=== PATIENT | female | born 1970 | race African-American/Black ===

== ENCOUNTER 2016-10-14 08:56 | Emergency (ER) | payer OTHER ==
[~2016-10-14] VITALS: Ht 154.9 cm; Wt 73.0 kg
[~2016-10-14 08:56] MED LIST: ALPR0.5T99 PO; DONNTAB12 PO; IBUP-232 PO; MAXZ PO; METH750T2 PO; PRIL20CA PO
[2016-10-14 08:57] VITALS: BP 150/96; PULSE 82; RESP 20; TEMP 98.5; O2SAT 97
[2016-10-14] MEDS ORDERED: METH4PAK PO (09:15)
[2016-10-14] MEDS ORDERED: CART120C PO (09:15)
[2016-10-14] MEDS ORDERED: HYOS0.128 PO (09:15)
[2016-10-14] MEDS ORDERED: METH25IN13 (09:15)
[2016-10-14] MEDS ORDERED: TRAM50TA PO (09:15)
--- NOTE | 2016-10-14 09:15 | PD ---
HPI Chief Complaint: Back/ Neck Pain or Injury Time Seen by Provider: 09:10 Travel History International Travel<30 days: No Contact w/Intl Traveler<30days: No Traveled to known affect area: No History of Present Illness HPI 46 y/o PFSH Past Medical History Cancer: No Diabetes: No Glaucoma: No Hepatitis: No Hiatal Hernia: No Hypertension: Yes Thyroid Disease: No Past Surgical History Gynecologic Surgery: Yes (tubal hysterectomy laparscopic) Hysterectomy: Yes Pacemaker: No Other Surgery: Yes Social History Alcohol Use: Yes (1-2 beers per day) Tobacco Use: Yes (3 cigarettes per day) Allergies-Medications (Allergen,Severity, Reaction): Coded Allergies: No Known Allergies (Unverified , 10/14/16) Reported Meds & Prescriptions Reported Meds & Active Scripts Active Reported Hyoscyamine (Hyoscyamine Sulfate) 0.125 Mg Tab 0.125 Mg PO Q4H Cartia Xt (Diltiazem ER 24 HR) 120 Mg Caper 120 Mg PO DAILY Methylprednisolone Dosepak (Methylprednisolone) 4 Dspk 4 Mg PO DIRECTED Per Pharmacist Direction Methotrexate Inj 250 Mg/10 Ml Inj Tramadol (Tramadol HCl) 50 Mg Tab 50 Mg PO Q8H PRN Xanax (Alprazolam) 0.5 Mg Tab 0.5 Mg PO DAILYPRN Prilosec 20 mg (Omeprazole) 20 Mg Capcr 20 Mg PO DAILY Maxzide (Triamterene/HCTZ) 75 Mg/50 Mg Tab 1 Tab PO DAILY Data Data Last Documented VS Vital Signs Date Time Temp Pulse Resp B/P Pulse Ox O2 Delivery O2 Flow Rate FiO2 10/14/16 08:57 98.5 82 20 150/96 97 Room Air Delroy Gibbs Oct 14, 2016 09:15
[2016-10-14] MEDS ORDERED: DEXAMETHASONE SOD PHOS 4 MG/ML VIAL IM ONE (09:45)
--- NOTE | 2016-10-14 09:49 | PD ---
HPI Chief Complaint: Back/ Neck Pain or Injury Time Seen by Provider: 09:10 Travel History International Travel<30 days: No Contact w/Intl Traveler<30days: No Traveled to known affect area: No History of Present Illness HPI 46 years old female complains of low back pain with radiation to the legs. Patient states the symptoms started yesterday. Patient has history rheumatoid arthritis. Patient has history of back pain that was seen by personal physician and had CT and MRI done recently. Patient being referred to neurologist for follow-up with back pain. Patient was given Medrol Dosepak for back pain. Patient still has 2 days left of the Dosepak. Patient states that the Medrol Dosepak helped the pain at the beginning however the pain came back after she started on the tapering dose. Patient denies any new injury. Patient states that the pain aching pain started low back with radiation to the legs. Patient denies any bladder or bowel incontinence. Patient denies any focal weakness or numbness of lower extremity. Patient denies any fever chills. PFSH Past Medical History Arthritis: Yes (RA) Heart Rhythm Problems: Yes (RAPID HEART BEAT) Cancer: No Diabetes: No Diminished Hearing: No GERD: Yes Glaucoma: No Hepatitis: No Hiatal Hernia: No Hypertension: Yes Medical other: Yes (back and neck problems) Thyroid Disease: No Tetanus Vaccination: < 5 Years Influenza Vaccination: No ?: Not Para: 2 Tubal Ligation: Yes Past Surgical History Abdominal Surgery: Yes (laproscopy x3 r/t scar tissue from hysterectomy) Gynecologic Surgery: Yes (tubal hysterectomy laparscopic) Hysterectomy: Yes Pacemaker: No Other Surgery: Yes Social History Alcohol Use: Yes (1-2 beers per day) Tobacco Use: Yes (1 cigarillo daily ) Substance Use: No Allergies-Medications (Allergen,Severity, Reaction): Coded Allergies: No Known Allergies (Unverified , 10/14/16) Reported Meds & Prescriptions Reported Meds & Active Scripts Active Reported Methotrexate 2.5 Mg Tab 2.5 Mg PO Q7D Folic Acid 1 Mg Tablet 1 Mg PO DAILY Alprazolam 0.5 Mg Tab 0.5 Mg PO DAILY Triamterene-Hydrochlorothiazide 75-50 Mg Tab 1 Tab PO DAILY Omeprazole 20 Mg Tab 20 Mg PO PRN Hyoscyamine (Hyoscyamine Sulfate) 0.125 Mg Tab 0.125 Mg PO Q4H Cartia Xt (Diltiazem ER 24 HR) 120 Mg Caper 120 Mg PO DAILY Methylprednisolone Dosepak (Methylprednisolone) 4 Dspk 4 Mg PO DIRECTED Per Pharmacist Direction Tramadol (Tramadol HCl) 50 Mg Tab 50 Mg PO Q8H PRN Review of Systems General / Constitutional: No: Fever Eyes: No: Visual changes HENT: No: Headaches Cardiovascular: No: Chest Pain or Discomfort Respiratory: No: Shortness of Breath Gastrointestinal: No: Abdominal Pain Genitourinary: No: Dysuria Musculoskeletal: No: Pain Skin: No Rash Neurologic: No: Weakness Psychiatric: No: Depression Endocrine: No: Polydipsia Hematologic/Lymphatic: No: Easy Bruising Physical Exam Narrative GENERAL: Well-nourished, well-developed patient. SKIN: Focused skin assessment warm/dry. HEAD: Normocephalic. EYES: No scleral icterus. No injection or drainage. NECK: Supple, trachea midline. No JVD or lymphadenopathy. CARDIOVASCULAR: Regular rate and rhythm without murmurs, gallops, or rubs. RESPIRATORY: Breath sounds equal bilaterally. No accessory muscle use. GASTROINTESTINAL: Abdomen soft, non-tender, nondistended. MUSCULOSKELETAL: No cyanosis, or edema. BACK: [id number] tenderness palpation lower lumbar area, without obvious deformity. No CVA tenderness. Neurologic exam: Patient has equal strength upper and lower extremity. No obvious focal neurological deficit. Deep tendon reflexes 2+ and equal. Negative Babinski. Data Data Last Documented VS Vital Signs Date Time Temp Pulse Resp B/P Pulse Ox O2 Delivery O2 Flow Rate FiO2 10/14/16 09:29 18 10/14/16 08:57 98.5 82 150/96 97 Room Air Orders Dexamethasone Inj (Decadron Inj) (10/14/16 09:45) [facility] Medical Decision Making Medical Screen Exam Complete: Yes Emergency Medical Condition: Yes Differential Diagnosis Differential diagnosis including acute exacerbation back pain, radiculopathy. Narrative Course 46 is old female with acute exacerbation of low back pain with radiation to the lower extremity. Patient has been seen by personal physician and have MRI done recently. Patient awaiting neurology appointment. Decadron 8 mg IM. Diagnosis Primary Impression: Lumbar radiculopathy Patient Instructions: General Instructions Additional Instructions: Stop Medrol Dosepak. Prednisone as directed. Robaxin as directed. Follow-up with neurologist as scheduled. Return if worse. Med/Other Pt SpecificInfo: Prescription(s) given Scripts Methocarbamol (Robaxin)750 Mg Dlv780 Mg PO QID #40 TAB Prov:Isrrael Montaño MD 10/14/16 Prednisone 20 Mg Tab20 Mg PO BID #14 TAB Prov:Isrrael Montaño MD 10/14/16 Disposition: 01 DISCHARGE HOME Condition: Stable Isrrael Montaño MD Oct 14, 2016 09:49
[2016-10-14] MEDS ORDERED: METH2.5T PO (09:50)
[2016-10-14] MEDS ORDERED: OMEP20TA PO (09:50)
[2016-10-14] MEDS ORDERED: ALPR0.5T3 PO (09:50)
[2016-10-14] MEDS ORDERED: TRIA1TAB5 PO (09:50)
[2016-10-14] MEDS ORDERED: FOLI1TAB6 PO (09:50)
[2016-10-14] MEDS ORDERED: ROBA750T PO (09:59)
[2016-10-14] MEDS ORDERED: PRED20 PO (09:59)
== END 2016-10-14 10:16 | disposition home or self-care (01) ==
LOC: NEPD 08:56
DX: M54.16 Radiculopathy, lumbar region (principal)
CPT/HCPCS: 96372; 99284; J1100